=== PATIENT | female | born 1970 | race Caucasian/White ===

== ENCOUNTER → 2018-04-05 08:57 | Outpatient (CLI) | payer OTHER, SELFPAY ==
[2018-04-05 10:24] LABS: Follicle Stimulating Hormone 11.5 mIU/mL; Free T3 3.2 pg/mL (2.18-3.98); Prolactin 1.5 ng/mL; T4 Free Direct 1.08 ng/dL (0.76-1.46); Thyroid Stim Hormone (TSH) 1.27 uIU/mL (0.358-3.74)
[2018-04-06 08:58] LABS: Progesterone Level 0.18 ng/mL (See Comment)
[2018-04-06 10:27] LABS: DHEA Sulfate 72.8 ug/dL (41.2-243.7)
[2018-04-06 11:18] LABS: Sex Hormone-binding Globulin 26.2 nmol/L (24.6-122.0)
[2018-04-08 14:02] LABS: ALB/GLOB Ratio 1.1 RATIO (0.9-2.4); AST(SGOT) 28 U/L (15-37); Alanine Aminotransfer ALT/SGPT 43 U/L (13-56); Alkaline Phosphatase 60 U/L (45-117); Anion Gap 13 (5-15); BUN 12 mg/dL (7-18); BUN/Creat Ratio 17.7 RATIO (10-20); Calcium,Total 9.4 mg/dL (8.5-10.1); Chloride 100 mmol/L (98-107); Creatinine, Serum 0.68 mg/dL (0.55-1.02); EST Glomerular Filtration Rate 100 mL/min (>60); Est Glom Filt Rate - Afr Amer 120 mL/min (>60); Globulin 3.6 g/dL (2.2-4.2); Glucose 143 mg/dL (74-106); Potassium 4.6 mmol/L (3.5-5.1); Protein, Total 7.6 g/dL (6.4-8.2); Sodium Level 138 mmol/L (136-145)
[2018-04-10 11:09] LABS: 17-Hydroxyprogesterone 23 ng/dL (.)
== END ==
PROVIDERS: Visit Provider Obstetrics & Gynecology
DX: L68.0 Hirsutism (principal); N92.6 Irregular menstruation, unspecified; R63.5 Abnormal weight gain; N95.1 Menopausal and female climacteric states
CPT/HCPCS: 36415; 80053; 82533; 82627; 82670; 83001; 83498; 84144; 84146; 84270; 84403; 84439; 84443; 84481; 82626

== ENCOUNTER → 2018-04-11 09:12 | Outpatient (CLI) | payer OTHER, SELFPAY ==
[2018-04-11 12:13] LABS: Insulin 8.5 mU/L (2.6-37.6)
== END ==
PROVIDERS: Visit Provider Obstetrics & Gynecology
DX: E11.9 Type 2 diabetes mellitus without complications (principal)
CPT/HCPCS: 36415; 83525

== ENCOUNTER → 2018-06-14 13:00 | Outpatient (CLI) | payer OTHER, SELFPAY ==
--- NOTE | 2018-06-14 13:30 | CER_PTH ---
PATIENT: MELLO BRONSON LOC: [facility] U#:[id number] AGE/SX: 55/F ROOM: RE06/14/[address]: Dr. Elza Vo MD : 1970 BED: DIS: SPEC #: [id number] RECD: 06/14/18 15:46 STATUS: TOLU RELasha #: [id number] JAMES: 06/14/18 13:[address]: Elza Mcfarlane DEPT: SURGICAL PATHOLOGY RECD BY: Stef Díaz ENTERED: 06/15/18 09:48 SP TYPE: CERV OTHR DR: Dr. Tyrell Vo MD Tissues: Uterine cervix, NOS Procedures: Surgery Specimen Level IV HEADER OPERATION: Polypectomy PRE-OP DIAGNOSIS: Cervical polyp TISSUE SUBMITTED: Cervical polyp MICROSCOPIC DIAGNOSIS Cervical polyp, biopsy: Benign endocervical polyp, mildly inflamed. SJ:tanmay 06/16/18 MICROSCOPIC DESCRIPTION Slides are reviewed. GROSS DESCRIPTION Received in fixative is one container labeled with the patient's name and designated cervical polyp. The specimen consists of a piece of gaston-pink polyp measuring 0.7 x 0.5 x 0.1 cm. The specimen is totally submitted in one cassette. / SJ:rg 06/15/18 TC:1 CPT: 31378
[2018-06-17 11:25] LABS: HPV APTIMA, High Risk Negative (Negative)
== END ==
PROVIDERS: Family Provider Family Medicine; PCP Family Medicine; Referring Provider Obstetrics & Gynecology; Visit Provider Obstetrics & Gynecology
DX: Z12.4 Encounter for screening for malignant neoplasm of cervix (principal)
CPT/HCPCS: 87624; 88175; 88305; G0145

== ENCOUNTER → 2020-03-07 15:48 | Outpatient (CLI) | payer OTHER, SELFPAY ==
[2020-03-07 17:02] LABS: Hematocrit 35.4 % (37-47); Hemoglobin 11.4 g/dL (12.0-15.0); Mean Corp Hgb Conc 32.2 g/dL (32-36); Mean Corpuscular Hgb 28.8 pg (27.0-32.0); Mean Corpuscular Volume 89.4 fL (81-99); Mean Platelet Vol. 10.8 fl (6.2-12.0); Platelet Count 251 K/mm3 (150-450); RBC Distribution Width CV 12.9 % (11.6-14.6); RBC Distribution Width SD 41.9 fl (35.1-43.9); Red Blood Count 3.96 M/mm3 (4.2-5.4); White Blood Count 6.6 K/mm3 (4.4-11.0)
[2020-03-07 17:06] LABS: International Normalized Ratio 0.9
[2020-03-07 17:07] LABS: Partial Thromboplast Time 20.5 Seconds (24.1-36.2)
[2020-03-07 17:16] LABS: Hemoglobin A1c 9.5 % (3.8-5.6)
[2020-03-07 18:09] LABS: Anion Gap 10 (5-15); BUN 10 mg/dL (7-18); BUN/Creat Ratio 11.8 RATIO (10-20); Calcium,Total 8.8 mg/dL (8.5-10.1); Chloride 100 mmol/L (98-107); Creatinine, Serum 0.85 mg/dL (0.55-1.02); EST Glomerular Filtration Rate 76 mL/min (>60); Est Glom Filt Rate - Afr Amer 92 mL/min (>60); Free T3 2.5 pg/mL (2.18-3.98); Glucose 429 mg/dL (74-106); Sodium Level 131 mmol/L (136-145); T4 Free Direct 1.28 ng/dL (0.76-1.46); Thyroid Stim Hormone (TSH) 0.96 uIU/mL (0.358-3.74)
== END ==
PROVIDERS: PCP Family Medicine; Visit Provider Obstetrics & Gynecology
DX: N92.1 Excessive and frequent menstruation with irregular cycle (principal)
CPT/HCPCS: 36415; 80048; 83036; 84439; 84443; 84481; 85027; 85610; 85730

== ENCOUNTER 2020-03-21 08:54 | Day surgery (SDC) | payer OTHER, SELFPAY ==
[2020-03-21] VITALS (7 sets, daily range): BP systolic 127–136; BP diastolic 80–88; PULSE 65–86; RESP 16–18; TEMP 36.4–37.1; O2SAT 96–100; BMI 32.8
--- NOTE | 2020-03-21 | EMB_PTH ---
PATIENT: MELLO BRONSON LOC: [facility] [place] U[place][id number] AGE/SX: 49/F ROOM: RE03/21/[address]: Dr. Elza Vo MD : 1970 BED: DIS: 03/21/2020 SPEC #: [id number] RECD: 03/22/20 07:45 STATUS: TOLU RELasha #: [id number] JAMES: 03/21/20 00:[address]: Elza Mcfarlane DEPT: SURGICAL PATHOLOGY RECD BY: Raheem Caldwell ENTERED: 03/22/20 07:45 SP TYPE: ENDOM BX/C OTHR DR: Dr. Tyrell Vo MD Tissues: Endometrium, NOS Procedures: Surgery Specimen Level IV HEADER OPERATION: Hysteroscopy, dilation and curettage PRE-OP DIAGNOSIS: Menorrhagia TISSUE SUBMITTED: Endometrial curettings MICROSCOPIC DIAGNOSIS Endometrial curettings: Fragments of proliferative endometrium. Fragments of benign ectocervical epithelium and benign endocervical mucosa. SHERI:tanmay 03/25/20 MICROSCOPIC DESCRIPTION Slides are reviewed. GROSS DESCRIPTION Received in fixative is one container labeled with the patient's name and designated endometrial curettings. The specimen consists of multiple irregular fragments of light to dark gaston soft tissue that in aggregate measure 3 x 0.6 x 0.1 cm. The specimen is totally submitted in one cassette. / AM:tanmay 03/22/20 TC:4 CPT: 55680
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
[2020-03-21 09:30] LABS: Internal QC Validated? YES +Cl - CLEAR BKGD; Pregnancy, Urine Negative Negative
[2020-03-21] MEDS: Lactated Ringers 1,000 ML 100 ML IV (10:04)
[2020-03-21 10:11] LABS: Bedside Glucose 137 mg/dL (70-110)
--- NOTE | 2020-03-21 12:03 | PCM.DC.D&C ---
Discharge Diet: No Restrictions Discharge Activity: Return to Normal Activity, May Shower, - - No tub bath for 1-2 weeks, may drive after 24-48 hours May resume sexual activity in: - - 2-4 weeks Call your doctor if you observe: Fever of 101 or Higher, Inability to urinate, Inability to have a bowel movement, Using more than one pad per hour, Shortness of breath, Chest pain, Calf discomfort, Uncontrolled pain, - - Bleeding > 1 pad per hour Additional Instructions: You may take Aleve (Naproxen or Naprosyn) over the counter for pain. Allergies/Adverse Reactions: Allergies morphine Allergy (Verified 03/21/20 09:34) Other GOES CRAZY, SEVERE ITCHING Medications to take at Discharge Aspirin [Aspirin, Baby] 81 mg PO DAILY@0800 07/02/13 Calcium (Elemental) [Caltrate-600] 600 mg PO DAILY@0800 07/02/13 Folic Acid 1 mg PO DAILY 07/02/13 Multivitamins,Therapeutic [Multivitamin] 1 tablet PO DAILY 07/02/13 [place]-3/Dha/Epa/Fish Oil [Fish Oil Dr 500 mg Softgel] 500 mg PO DAILY 07/02/13 metFORMIN (XR) [Glucophage Xr] 1,000 mg PO BID 07/25/15 Dulaglutide [Trulicity] 0.5 mg SQ TH 03/14/20 Glipizide [Glucotrol Xl] 10 mg PO BID 03/14/20 L.acidoph,Paracasei, B.lactis [Probiotic] 1 ea PO DAILY 03/14/20 Lisinopril [Zestril] 10 mg PO DAILY 03/14/20 Metoprolol Tartrate [Lopressor (beta parrish)] 50 mg PO BID 03/14/20 Vitamin B Complex 1 ea PO DAILY 03/14/20 Zinc 50 mg PO DAILY 03/14/20 Naproxen Sodium [Aleve] 2 tab PO BID PRN #30 cap 03/21/20 The following prescriptions were given: Naproxen Sodium [Aleve] 2 tab PO BID PRN #30 cap PRN Reason: pain Primary Care Physician: Tyrell Vo MD [Primary Care Provider] - Test Results: Test results from this visit will be discussed in further detail at your follow-up appointment, if applicable. Please Follow Up With: Elza Mcfarlane MD When: 2 weeks
[2020-03-21] MEDS: HYDROcodone Bitartrate/Apap 5/325 Tablet PO (12:18)
--- NOTE | 2020-03-23 07:56 | OP.PCM_ITS ---
Problem List (1) Menorrhagia Status: Acute Qualifiers: Menorrhagia type: with irregular cycle Qualified Code(s): N92.1 - Excessive and frequent menstruation with irregular cycle Report of Operation Date of Procedure: 03/21/20 Pre-Operative Diagnosis: 1. Menorrhagia. 2. Thickened endometrium Post-Operative Diagnosis: 1. Menorrhagia. 2. Thickened endometrium Surgery/Procedure Performed:: 1. Hysteroscopy. 2. Dilation and curettage Description of Surgical Findings:: Normal appearing endometrium and uterine cavity coupon redemption clerk: None Type of Anesthesia:: General, Local Anesthesiologist: Mello Glover Specimen's removed: endometrial curettings Estimated Blood Loss (mL): 10 Fluids Replaced: 700 ml Description of Procedure: Patient was brought to the operating room and signed was performed. She is placed in the dorsal supine position and induced under MAC anesthetic. She was repositioned to dorsolithotomy and examination under anesthesia was performed. The perineum was prepped and draped in sterile fashion and straight catheterization of the bladder was performed. The patient was placed into high lithotomy and a bivalve speculum placed vaginally. A paracervical block was placed using a total of 20 cc of 1% lidocaine. The cervix was grasped with a single-tooth tenaculum at the anterior cervical lip. The uterus sounded to 9 cm. The cervix was subsequently dilated and hysteroscopy performed demonstrating normal uterine cavity. The hysteroscope was removed and sharp curettage followed with retrieval of Que curettings. Hysteroscopy was again performed confirming the integrity of the uterine wall. The procedure was complete. The tenaculum was removed from the cervix with hemostatic tenaculum site. The speculum was removed from the vagina. The patient was placed into dorsal supine position, awakened and transferred to the recovery room without complication. Sponge counts were correct x2. - Complications None - Admit VTE Documentation VTE Present on Admission: No VTE Mechan Device Prophylaxis: SCD's VTE Pharm Prophylaxis ordered?: No
== END 2020-03-21 12:48 | disposition home or self-care (01) ==
LOC: SDC 08:56 → AC 08:58
PROVIDERS: Anesthesiology; PCP Family Medicine; Referring Provider Obstetrics & Gynecology; Visit Provider Obstetrics & Gynecology
PROC: 0UDB8ZZ Extraction of Endometrium, Via Natural or Artificial Opening Endoscopic (ICD-10-PCS; CPT 58558; principal; 2020-03-21 10:20)
DX: N92.1 Excessive and frequent menstruation with irregular cycle (principal); Z11.59 Encounter for screening for other viral diseases; N95.1 Menopausal and female climacteric states; D68.51 Activated protein C resistance; E11.9 Type 2 diabetes mellitus without complications; I10 Essential (primary) hypertension; K21.9 Gastro-esophageal reflux disease without esophagitis; Z79.3 Long term (current) use of hormonal contraceptives; Z79.84 Long term (current) use of oral hypoglycemic drugs; Z79.899 Other long term (current) drug therapy
CPT/HCPCS: 00952; 58558; 36415; 81025; 82962; 86850; 86900; 86901; 87635; 88305; 94799; J7120; J2405; U0003

== ENCOUNTER 2020-04-25 11:00 | Observation (INO) | payer OTHER, SELFPAY ==
[2020-03-21 09:36] VITALS: BMI 32.8
[2020-04-19 13:54] LABS: Color, Urine Yellow (Yellow); Glucose, Dipstick Normal (Normal); Ketone-Dipstick Negative (Negative); Leukocyte Esterase-Dipstick Negative /ul (Negative); Nitrite-Dipstick Negative (Negative); Occult Blood-Urine Negative /ul (Negative); Protein-Dipstick Negative (Negative); Urine Bilirubin Dipstick Negative (Negative); Urine Clarity Clear (Clear); Urine Urobilinogen Normal (Normal)
[2020-04-19 14:00] LABS: Anion Gap 9 (5-15); BUN 13 mg/dL (7-18); BUN/Creat Ratio 18.5 RATIO (10-20); Calcium,Total 8.9 mg/dL (8.5-10.1); Chloride 101 mmol/L (98-107); EST Glomerular Filtration Rate 94 mL/min (>60); Est Glom Filt Rate - Afr Amer 114 mL/min (>60); Glucose 97 mg/dL (74-106); Potassium 3.8 mmol/L (3.5-5.1); Sodium Level 137 mmol/L (136-145)
[2020-04-19 14:09] LABS: Hemoglobin A1c 7.9 % (3.8-5.6)
--- NOTE | 2020-04-19 14:25 | EKG12_ITS ---
Test Reason : PREOP Blood Pressure : / mmHG Vent. Rate : 081 BPM Atrial Rate : 081 BPM P-R Int : 166 ms QRS Dur : 078 ms QT Int : 350 ms P-R-T Axes : 009 012 014 degrees QTc Int : 406 ms Normal sinus rhythm Normal ECG Confirmed by BEATRIZ APPLE, ELAYNE ([id number]), news assignment editor SEBASTIEN BRANDON ([id number]) on 04/23/2020 8:08:14 AM Referred By: Elza Vo Confirmed By:AMITA HENDERSON MD
[2020-04-25] VITALS (13 sets, daily range): BP systolic 98–124; BP diastolic 57–80; PULSE 65–95; RESP 16–18; TEMP 36.1–36.9; O2SAT 93–100; BMI 32.3
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
[2020-04-25 05:59] LABS: Internal QC Validated? YES +Cl - CLEAR BKGD; Pregnancy, Urine Negative Negative
[2020-04-25] MEDS: Lactated Ringers 1,000 ML 125 ML IV ×4 (06:17→17:32)
[2020-04-25 06:40] LABS: Bedside Glucose 81 mg/dL (70-110)
[2020-04-25] MEDS: Heparin Injection 5,000 UNITS/ML Syringe 5000 UNITS IV (07:00)
--- NOTE | 2020-04-25 07:30 | HYST_PTH ---
PATIENT: MELLO BRONSON LOC: [facility] U#:[id number] AGE/SX: 50/F ROOM: OR325 RE04/25/[address]: Dr. Elza Vo MD : 1970 BED: 1 DIS: 04/26/2020 SPEC #: [id number] RECD: 04/25/20 11:35 STATUS: TOLU RELasha #: [id number] JAMES: 04/25/20 07:[address]: Elza Mcfarlane DEPT: SURGICAL PATHOLOGY RECD BY: Stef Díaz ENTERED: 04/25/20 13:43 SP TYPE: HYSTERECT OTHR DR: MD Dr. Valorie Ramirez MD Dr. Raymond Mason, MD Tissues: Uterus, NOS Procedures: Surgery Specimen Level V HEADER OPERATION: Hysterectomy, LAVH, salpingectomy PRE-OP DIAGNOSIS: Uterine fibroid, menorrhagia TISSUE SUBMITTED: Uterus, cervix, bilateral fallopian tubes MICROSCOPIC DIAGNOSIS Uterus, hysterectomy: Cervix - nabothian cysts. Endometrium - proliferative endometrium. Myometrium - leiomyoma and adenomyosis. Right and left fallopian tubes - no pathologic change. AM:tanmay 04/26/20 MICROSCOPIC DESCRIPTION Slides are reviewed. GROSS DESCRIPTION Received in fixative is one container labeled with the patient's name and designated uterus, cervix and bilateral fallopian tubes. The specimen consists of a hysterectomy specimen consisting of previously, partially opened uterus with cervix, detached bilateral fallopian tubes and detached piece of uterus with portion of endometrial cavity. The uterus with cervix and detached piece of uterus weighs in aggregate 83 gm. The uterus with cervix measures 9 x 5 x 4.5 cm and detached piece of uterus measures 4 x 3 x 2 cm. The serosal surface is focally ragged. The endocervical canal measures 3 cm in length and the endocervical mucosa is gaston, glistening and unremarkable. The endometrial cavity is partly disrupted due to previous sectioning and measures 5 cm in length and up to 1.5 cm in width. The endometrium is gaston, glistening without any mass lesion and measures 0.1 cm in thickness. Sections of the uterine wall reveal a gaston nodular mass measuring 1.5 cm in diameter. Sections of this mass reveals gaston whorled cut surfaces without areas of hemorrhage, necrosis or cystic degeneration. The uninvolved uterine wall measures up to 2 cm in thickness. Sections of detached piece of uterus do not reveal any mass lesion. The fallopian tubes are not identified as right or left. One of the fallopian tubes measure 4 cm in length and 0.7 cm in diameter. The fimbrial end is identified. Sections reveal unremarkable cut surfaces. The second fallopian tube is similar appearance to first and measures 4 cm in length and 0.6 cm in diameter. Family Services Coordinator sections are submitted in nine cassettes as follows: 1 - anterior cervix, 2 - posterior cervix, 3 & 4 - anterior uterine wall, 5 & 6 - posterior uterine wall, 7 - nodular mass, 8 & 9 - bilateral fallopian tubes with each containing one fallopian tube. / SHERI:tanmay 04/25/20 TC:1 CPT: 27800
[2020-04-25] MEDS: Cefotetan 2 GM in 0.9% NS 100 ML IV (07:42)
[2020-04-25] MEDS: Vasopressin 20 UNITS/ML Vial (08:20)
[2020-04-25] MEDS: Bupivacaine Mpf 0.5% 30 ML VIAL (08:30)
--- NOTE | 2020-04-25 09:30 | PCM.OPRPT ---
Problem List (1) Stress incontinence Status: Acute Report of Operation Date of Procedure: 04/25/20 Pre-Operative Diagnosis: stress incontinence Post-Operative Diagnosis: same Surgery/Procedure Performed:: midurethral sling insertion, cystoscopy Type of Anesthesia:: General Specimen's removed: none Estimated Blood Loss (mL): 10cc Description of Procedure: The patient is a 50-year-old female with stress urinary incontinence along with urge incontinence. We discussed the options for management and she desired to proceed with mid urethral sling insertion at the time of her hysterectomy. Risks benefits and alternatives were fully discussed including the risks of COVID-19. Informed consent was obtained. She underwent urodynamics and cystoscopy in the office in preparation. The patient was taken to the operating room and placed on the operating room table. Anesthesia monitored the head, neck, airway, IV access and vital signs throughout the case. Once anesthesia was appropriately administered the patient was prepped and draped in usual sterile fashion. Dr. Jocelyn Vo proceeded with hysterectomy and closure of the cuff. The case was then turned to nd. The mid urethra was identified. She already had an indwelling urethral Chilel catheter. The submucosa was injected for hemostatic control and hydrostatic dissection. A midline vertical 2 cm incision was then made and sharp and blunt dissection was performed on either side of the urethra with care being taken to avoid injury to the urethra itself. At this time the Altis mid urethral sling was placed using the trochars into the trans-obturator complexes bilaterally. There was no difficulty with insertion of the sling. It was positioned using the tensioning suture which was then cut. The sling lay in a flat position. The midline incision was closed with running interlocking 2-0 Vicryl suture. A cystourethroscopy was then performed through the urethra under direct visualization with a 70 degree lens. Bilateral ureteral orifices were clearly identified and good ureteral jets were observed bilaterally. The remainder of the bladder mucosa was visualized in its entirety and was found to be without injury or foreign body. There were no masses or areas of erythema either. The urethral mucosa was also visualized and no foreign body was identified. The cystoscope was removed and the Chilel catheter was reinserted. Of note the patient has significant edema of her labia bilaterally. At this time the patient was awakened and taken to the recovery room in good condition. There were no complications during the procedure. Grafts/Implants Used: Altis midurethral sling - Complications none - Admit VTE Documentation VTE Present on Admission: Yes VTE Mechan Device Prophylaxis: SCD's VTE Pharm Prophylaxis ordered?: Yes
--- NOTE | 2020-04-25 09:32 | PCM.DC.URO ---
Discharge Diet: No Restrictions Discharge Activity: May not drive while taking narcotic pain medications. May resume sexual activity in: 4-6 weeks Lifting Restrictions: no lifting over 5 pounds for 4 weeks Additional Activity Instructions:: no strenuous activity, no exercise, no swimming, no tub bathing, no hot tubs ok to shower Call your doctor if your incision/area has: Continuous Slow Oozing, Sudden Increased Bleeding, Increased Pain/ Swelling, Foul Smelling Discharge Call your doctor if you observe: Fever of 101 or Higher, Inability to urinate, Inability to have a bowel movement Allergies/Adverse Reactions: Allergies morphine Allergy (Verified 04/25/20 05:35) Other GOES CRAZY, SEVERE ITCHING Medications to take at Discharge Calcium (Elemental) [Caltrate-600] 600 mg PO DAILY@0800 07/02/13 Folic Acid 1 mg PO DAILY 07/02/13 Multivitamins,Therapeutic [Multivitamin] 1 tablet PO DAILY 07/02/13 [place]-3/Dha/Epa/Fish Oil [Fish Oil Dr 500 mg Softgel] 500 mg PO DAILY 07/02/13 metFORMIN (XR) [Glucophage Xr] 1,000 mg PO BID 07/25/15 Dulaglutide [Trulicity] 0.5 mg SQ TH 03/14/20 Glipizide [Glucotrol Xl] 10 mg PO BID 03/14/20 L.acidoph,Paracasei, B.lactis [Probiotic] 1 ea PO DAILY 03/14/20 Lisinopril [Zestril] 10 mg PO DAILY 03/14/20 Metoprolol Tartrate [Lopressor (beta parrish)] 50 mg PO BID 03/14/20 Vitamin B Complex 1 ea PO DAILY 03/14/20 Zinc 50 mg PO DAILY 03/14/20 Naproxen Sodium [Aleve] 2 tab PO BID PRN #30 cap 03/21/20 Aspirin [Adult Low Dose Aspirin EC] 81 mg PO DAILY 04/16/20 Pioglitazone [Actos] 30 mg PO QHS 04/16/20 Cephalexin [Keflex] 500 mg PO Q12 3 Days #6 cap 04/25/20 Oxycodone HCl/Acetaminophen [Percocet 5/325] 2 tablet PO Q8H PRN PRN 7 Days #20 tablet 04/25/20 The following prescriptions were given: Cephalexin [Keflex] 500 mg PO Q12 3 Days #6 cap Transmission Status: Pending to [facility] Oxycodone HCl/Acetaminophen [Percocet 5/325] 2 tablet PO Q8H PRN PRN 7 Days #20 tablet PRN Reason: Pain Transmission Status: Sent to [facility] Primary Care Physician: Tyrell Vo MD [Primary Care Provider] - Test Results: Test results from this visit will be discussed in further detail at your follow-up appointment, if applicable. Please Follow Up With: Valorie Martins MD When: call office for appt
--- NOTE | 2020-04-25 11:00 | OP.PCM_ITS ---
Problem List (1) Uterine fibroid Status: Acute (2) Menorrhagia Status: Acute Qualifiers: Menorrhagia type: with irregular cycle Report of Operation Date of Procedure: 04/25/20 Pre-Operative Diagnosis: Menorrhagia. Uterine fibroids Post-Operative Diagnosis: Menorrhagia. Uterine fibroids Surgery/Procedure Performed:: Laparoscopic assisted vaginal hysterectomy. Bilateral salpingectomy. Lysis of adhesions Description of Surgical Findings:: extensive bladder adhesions to anterior uterus diamond driller: Alicia Best Type of Anesthesia:: General Anesthesiologist: Rio Pan Estimated Blood Loss (mL): 200 Description of Procedure: Patient was taken to the operating room and sign in performed. She was induced under general anesthesia and intubated. She was repositioned into dorsal lithotomy and her arms tucked at her side. An examination under anesthesia was performed. The perineum and abdomen were prepped and draped in sterile fashion. A agee catheter was placed. A weighted speculum was placed vaginally and the cervix grasped at the anterior vaginal lip. The uterus was sounded and a ZUMI uterine manipulator was placed and secured. The tenaculum was removed. The patient was placed into low lithotomy and attention turned to the abdomen. An inferior umbilical incision was made with the scalpel. The Veress needle was introduced abdominally with successful hang drop test and no aspirate and abdominal entry pressures were less than 5mmHg. The abdomen was insufflated to 15mmHg. The Veress needle was removed and a 5mm port was placed under laparoscopic guidance at the umbilicus. The patient was placed into Trendelenberg. A laparoscopic guided TAP block was performed using 0.5% Marcaine in the right and left lower quadrants under transillumination. Incisions were m arina at each of these sites and 5mm ports were also placed. A suprapubic incision was made and 5mm port also placed here. The abdomen and pelvis were inspected with normal anatomy apart from the dense bladder adhesion to the anterior uterus. I proceeded with left salpingectomy. The tubal fimbria was identified and the mesosalpinx was clamped, electrocoagulated and transected using the Enseal device to the level of the uterine cornua. The Enseal was used for all electrocoagulation and transection during the procedure unless otherwise noted The left utero-ovarian ligament, then the left round ligament was electrocoagulated and transected. The anterior left broad ligament was opened and the uterine vessels skeletonized with creation of the bladder flap. In similar fashion right salpingectomy was performed and followed by electrocoagulation and transection of the right utero-ovarian ligament and round ligaments, opening of the right broad ligament with skeletonization of the uterine vessels. Further anterior dissection was completed using blunt and sharp dissection to complete the bladder flap bilaterally. The uterine arteries were electocoagulated bilaterally. The abdomen was desufflated and Attention was turned vaginally. A circumferential incision was made using the scalpel. The anterior vesicovaginal membrane was dissected and curved [place] placed anteriorly however the anterior culdesac peritoneum remained high. Posteriorly, the culdesac was entered sharply and a long weighted speculum was placed into the posterior culdesac. The uterosacral ligaments, then cardinal ligaments were serially Emiliano clamped and cut and suture ligated with 0 Vicryl. O Vicryl was used for all sutures. With further descent, the anterior culdesac peritoneum was visualized and sharply entered. The curved [place] retractore was placed into the culdesac. The uterine vessels were Emiliano clamped, suture ligated and cut. There was uterine tissue dystocia due to a long vagina and narrow pelvis. I transected the left tube to allow further visualization. The uterus was bivalved and cored with delivery of the uterus with tubes. A modified Thacker culdeplasty was performed with pursestring suture of the uterosacral ligements and posterior peritoneum. The vaginal cuff was reapproximated with serial figure of eight sutures. Dr. Martins completed her portion of the procedure while I performed l aparoscopic to verify intra-abdominal hemostasis with excellent hemostasis. There was efflux of insufflation vaginally. Following placement of the sling, a cuff defect was identified and I placed three additional figure of eight sutures at the vaginal cuff. Cystoscopy was performed by Dr. Martins and the procedure complete. The patient was placed into dorsal supine position, awakened, extubated and transferred to the recovery room without complication. Sponge and needle counts correct x 2. - Complications none - Admit VTE Documentation VTE Present on Admission: No VTE Mechan Device Prophylaxis: SCD's VTE Pharm Prophylaxis ordered?: No
[2020-04-25 11:51] LABS: Bedside Glucose 226 mg/dL (70-110)
[2020-04-25] MEDS: HYDROmorphone 1 MG/ML Syringe IV (13:31)
[2020-04-25] MEDS: 0.9% Saline Lock 10 ML Syringe IV (13:32)
--- NOTE | 2020-04-25 14:02 | PCA ---
got some medical records from [facility] for patient placed in chart
[2020-04-25] MEDS: Acetaminophen 500 MG Tablet 1000 MG PO ×2 (15:20→21:48)
[2020-04-25] MEDS: Ketorolac 30 MG/ML Syringe IV ×2 (17:20→22:04)
[2020-04-25] MEDS: Insulin Lispro 100 UNIT/ML INSULN.PEN SC (17:35)
[2020-04-25 17:56] LABS: Bedside Glucose 217 mg/dL (70-110)
--- NOTE | 2020-04-25 18:09 | PCM.PN.BLA ---
Progress Note PROGRESS NOTE Doing well. Pain controlled. OOB to chair. Denies nausea or vomiting. Tolerates PO. No flatus yet. Denies heavy vaginal bleeding. AVSS GEN - NAD, AAO x 3 ABD - soft, NT, ND, incisional dressings c/d/i EXT - no calf tenderness A/P: 50yo s/p LAVH, BS, tvt-o doing well. -Routine postop care -hx DM - SSI -Ambulation encouraged, Lovenox for DVT ppx STROKE Vital Signs/Narrative: Vital Signs Temp Pulse Resp BP Pulse Ox 04/25/20 17:15 97.9 F 83 16 102/71 100 04/25/20 15:15 97.5 F L 83 16 100/61 95
[2020-04-25] MEDS: oxyCODONE 5 MG Tablet PO (18:50)
[2020-04-25] MEDS: glipiZIDE 10 MG Tablet PO (18:50)
[2020-04-25] MEDS: metFORMIN (XR) 500 MG Tablet 1000 MG PO (18:50)
[2020-04-25] MEDS: Pioglitazone Hydrochloride 30 MG Tablet PO (21:47)
[2020-04-25] MEDS: DULAGLUTIDE 1.5 MG/0.5 ML PEN.INJCTR SQ (21:48)
[2020-04-25] MEDS: Enoxaparin 40 MG/0.4 ML Syringe SC (21:48)
[2020-04-25 22:36] LABS: Bedside Glucose 191 mg/dL (70-110)
[2020-04-26] MEDS: oxyCODONE 5 MG Tablet PO ×2 (02:38→11:46)
[2020-04-26 02:40] VITALS: BP 95/55; PULSE 95; RESP 20; TEMP 36.4; O2SAT 95
[2020-04-26] MEDS: Acetaminophen 500 MG Tablet 1000 MG PO (06:43)
[2020-04-26] MEDS: Ketorolac 30 MG/ML Syringe IV ×2 (06:44→11:33)
[2020-04-26] MEDS: 0.9% Saline Lock 10 ML Syringe IV ×2 (06:47→11:33)
[2020-04-26 07:10] LABS: Bedside Glucose 50 mg/dL (70-110)
[2020-04-26 07:17] LABS: Hematocrit 26.6 % (37-47); Hemoglobin 8.7 g/dL (12.0-15.0); Mean Corp Hgb Conc 32.7 g/dL (32-36); Mean Corpuscular Hgb 28.9 pg (27.0-32.0); Mean Corpuscular Volume 88.4 fL (81-99); Mean Platelet Vol. 9.6 fl (6.2-12.0); Platelet Count 263 K/mm3 (150-450); RBC Distribution Width CV 12.7 % (11.6-14.6); RBC Distribution Width SD 40.8 fl (35.1-43.9); Red Blood Count 3.01 M/mm3 (4.2-5.4); White Blood Count 10.8 K/mm3 (4.4-11.0)
[2020-04-26 07:24] VITALS: O2SAT 97
[2020-04-26 07:30] LABS: Bedside Glucose 49 mg/dL (70-110)
--- NOTE | 2020-04-26 07:47 | NURSING ---
Patient's blood sugar was 50. Given 4 oz. cranberry juice. Encouraged to drink it all. Patient only sipped it. Patient's sugar rechecked-49. Gerardo crackers and peanut butter given and eaten. Breakfast ordered.
[2020-04-26 07:55] LABS: Creatinine, Serum 0.78 mg/dL (0.55-1.02); EST Glomerular Filtration Rate 84 mL/min (>60); Est Glom Filt Rate - Afr Amer 102 mL/min (>60); Estimated Creatinine Clearance 76.17 ml/min
[2020-04-26 08:09] VITALS: BP 102/67; PULSE 79; RESP 16; TEMP 36.4; O2SAT 95
[2020-04-26] MEDS: Vitamin B Comp W-C Capsule 1 CAP PO (08:16)
[2020-04-26] MEDS: Multivitamins,Therapeutic Tablet 1 TABLET PO (08:16)
[2020-04-26] MEDS: metFORMIN (XR) 500 MG Tablet 1000 MG PO (08:16)
[2020-04-26] MEDS: glipiZIDE 10 MG Tablet PO (08:16)
[2020-04-26] MEDS: Folic Acid 1 MG Tablet PO (08:16)
[2020-04-26 10:10] VITALS: PULSE 84
[2020-04-26 10:13] VITALS: PULSE 84
[2020-04-26] MEDS: Lisinopril 10 MG Tablet PO (10:13)
[2020-04-26] MEDS: Metoprolol Tartrate 50 MG Tablet PO (10:13)
[2020-04-26 12:28] VITALS: BP 101/59; PULSE 85; RESP 16; TEMP 37; O2SAT 98
== END 2020-04-26 12:53 | disposition home or self-care (01) ==
LOC: SDC 11:22 → MS3 04-26 07:21
PROVIDERS: Anesthesiology; Urology; Admitting Provider Obstetrics & Gynecology; PCP Family Medicine; Referring Provider Obstetrics & Gynecology; Visit Provider Obstetrics & Gynecology
PROC: 0UT9FZZ Resection of Uterus, Via Natural or Artificial Opening With Percutaneous Endoscopic Assistance (ICD-10-PCS; CPT 58552; principal; 2020-04-25 07:05)
PROC: 0TJB8ZZ Inspection of Bladder, Via Natural or Artificial Opening Endoscopic (ICD-10-PCS; CPT 57288; 2020-04-25 07:05)
DX: N39.3 Stress incontinence (female) (male) (principal); D25.1 Intramural leiomyoma of uterus; Z11.59 Encounter for screening for other viral diseases; N92.1 Excessive and frequent menstruation with irregular cycle; E11.9 Type 2 diabetes mellitus without complications; D68.51 Activated protein C resistance; N95.1 Menopausal and female climacteric states; K21.9 Gastro-esophageal reflux disease without esophagitis; I10 Essential (primary) hypertension; Z79.899 Other long term (current) drug therapy; Z79.84 Long term (current) use of oral hypoglycemic drugs
CPT/HCPCS: 00940; 57288; 58552; 36415; 80048; 81002; 81025; 82565; 82962; 83036; 85027; 86850; 86900; 86901; 87086; 87088; 87635; 88307; 93005; 96361; 96372; 96374; 96375; 96376; 99218; 99251; C9803; J7120; A4216; C1760; G0378; G0379; G0463; J2405; U0003

== ENCOUNTER → 2020-11-01 13:11 | Outpatient (CLI) | payer OTHER, SELFPAY ==
--- NOTE | 2020-11-01 13:12 | MRI_ITS ---
STUDY: MRI RIGHT SHOULDER REASON FOR EXAM: Female, 50 years old. Pain, no injury, decreased rom TECHNIQUE: Standardized fat and water weighted pulse sequences were obtained in all 3 orthogonal planes. COMPARISON: X-ray August 14, 2020 FINDINGS: Normal supraspinatus tendon. Normal infraspinatus tendon. Normal subscapularis tendon. Normal teres minor tendon. Normal supraspinatus muscle. Normal infraspinatus muscle. Normal subscapularis muscle. Normal teres minor muscle. Normal glenohumeral articulation. There is small joint effusion. Normal humeral head and visualized proximal humerus. Normal biceps labral complex. Normal intracapsular long biceps tendon. Tear of the superior labrum adjacent to the biceps anchor, series 6 images 07/05 and 08/04 Normal capsulo- ligamentous complex. Normal rotator interval. There is mild osteoarthritis of the acromioclavicular articulation. There is a Type II morphology (curved), with a neutral orientation. There is no subacromial-subdeltoid bursal fluid. Normal visualized coracohumeral and coracoacromial ligaments. Normal quadrilateral space. Normal axillary space. Normal deltoid muscle. Normal trapezius muscle. MRI/Upper Ext Joint Only(Routine) IMPRESSION: No rotator cuff tear. SLAP lesion with tear of the superior labrum. Electronically Signed: Julian Ho MD at 15:38 EDT , Service support ,
== END ==
PROVIDERS: PCP Family Medicine; Referring Provider Physician Assistant; Visit Provider Physician Assistant
DX: M25.511 Pain in right shoulder (principal); M75.41 Impingement syndrome of right shoulder
CPT/HCPCS: 73221

== ENCOUNTER 2020-12-12 10:00 | Outpatient (RCR) | payer OTHER, SELFPAY ==
--- NOTE | 2020-11-13 14:59 | HP.PTEVAL ---
Patient's Visit Information MELLO BRONSON is a 50 year old F referred to Physical Therapy by Dr. aSrah Rodriguez DO with a diagnosis of R SLAP lesion and adhesive capsulitis. Date of Evaluation: 11/13/20 Physical Therapist: Abhinav Khalil, PT, ATC - Visit Plan Frequency: 2-3x /Week Duration: 4 Weeks Plan: Aquatic therapy consisting of R shoulder stretching and strengthening, scap stab ex's, ROM, and HEP - Subjective Pt reports her R shoulder has been sore since April of 2020. Pt reports she had a hysterectomy at ;that time and notes her R shoulder has been sore ever since. Pt notes she has no other mechanism she can think of at this time. Pt is R hand dominant. Pt notes sleep difficulty secondary to pain. Pt reports R UE radiculopathy in the L UE which extends down to the mid forearm on occasion. Pt reports her pain has progressively worsened over the past several months, and has become really severe over the past 6 weeks. Pt reports she works from home on a computer, and notes this provokes R UE t and n. Pt reports she is unable to perform overhead lifting activity secondary to pain. Pt notes she has been performing a HEP, but no improvements at this time. Pt had an MRI which revealed a SLAP lesion of R shoulder. 3/10 pain at rest, 9/10 pain at worst: - Pain R shoulder Pain Intensity (Out of 10): 3 Pain Intensity Range: 9 - Objective Neuro: B UE sensation is WNL to light touch. Palpation: R shoulder is sore along the anterior region, along the anterior joint line and along the distribution of the biceps tendon. ROM: L shoulder flex= 160, abd= 180, ER= 65, IR WNL; R shoulder flex= 110, abd= 70, ER= 25, IR significantly limited. MMT: R shoulder is 4-/5 throughout available ROM. L shoulder is 5/5 throughout - Goals Goal 1:: Decrease R shoulder pain x 50% to aid with sleep Goal Time Frame: 4-6 Weeks Goal 2:: Increase R shoulder flex and abd ROM x 30 degrees to aid with overhead lifting Goal Time Frame: 4-6 Weeks Goal 3:: Increase R shoulder strength x 1 grade to aid with IADL's Goal Time Frame: 4-6 Weeks Goal 4:: I with HEP Goal Time Frame: 4-6 Weeks - Rehabilitation Potential Physical Therapy Diagnosis: Pt has R shoulder pain, weakness, and limited ROM secondary to R SLAP lesion and adhesive capsulitis Rehabilitation Potential: Good - Anticipated Interventions Patient/Client Instruction: Educate patient on: Condition, Plan of Care For the Purpose of:: To improve self management Therapeutic Exercise to Include: Strength training, Endurance training, Flexibilty training, In an aquatic setting, Passive ROM, Active ROM, Scapular Strength/Stabilization For the Purpose of:: To decrease pain, To increase ROM, To improve muscle performance and motor function Cryotherapy (ice pack, ice massage): Yes For the Purpose of:: To decrease pain Thank you for the opportunity to evaluate your patient. For Medicare and Medicare HMO plans, please review the plan of care and approve it. It will need to be FAXED BACK to us at [phone] for Medicare purposes. For Medicare only, by signing this I certify the plan of care. Please let me know if there are questions or concerns regarding this plan of care. Physician Signature: Date:
--- NOTE | 2020-12-12 10:31 | HP.PTDCSUM ---
It has been my pleasure to treat MELLO BRONSON referred by Dr. Sarah Rodriguez DO, with the diagnosis of R SLAP lesion and adhesive capsulitis for a total of 8 visit(s). Discharge Date: Please see the following information for a summary of their discharge status. Subjective: My mobility has improved, the pain is the same R shoulder Pain Intensity (Out of 10): 6 % Improvement: 30 Objective/Function: R shoulder pain 6/10. R shoulder ROM: flex= 110, abd= 75, ER= 10, IR moderately limited. R shoulder MMT: IR= 3+/5, all other measurements 4/5 in available ROM. Pt is not progressing at this time Goal 1:: Decrease R shoulder pain x 50% to aid with sleep Goal Progress: Not Progressing Goal 2:: Increase R shoulder flex and abd ROM x 30 degrees to aid with overhead lifting Goal Progress: Not Progressing Goal 3:: Increase R shoulder strength x 1 grade to aid with IADL's Goal Progress: Not Progressing Goal 4:: I with HEP Goal Progress: Goal Met Plan: Discontinue, RTD If there are questions or concerns regarding this patient's physical therapy, please feel free to call me at [phone]. Thank you for the referral of this patient. Sincerely, Abhinav Khalil, PT, ATC
== END 2020-12-12 19:00 | disposition home or self-care (01) ==
LOC: PT 10:00
PROVIDERS: PCP Family Medicine; Referring Provider Orthopaedic Surgery; Visit Provider Orthopaedic Surgery
DX: S43.431D Superior glenoid labrum lesion of right shoulder, subsequent encounter (principal); M75.01 Adhesive capsulitis of right shoulder
CPT/HCPCS: 97113; 97161; 97164

== ENCOUNTER 2021-01-14 07:19 | Day surgery (SDC) | payer OTHER, SELFPAY ==
[2020-12-18 13:51] VITALS: BMI 32.3
[2021-01-09 09:56] LABS: Anion Gap 6 (5-15); BUN 12 mg/dL (7-18); Calcium,Total 9.2 mg/dL (8.5-10.1); Chloride 99 mmol/L (98-107); Creatinine, Serum 0.75 mg/dL (0.55-1.02); EST Glomerular Filtration Rate 87 mL/min (>60); Est Glom Filt Rate - Afr Amer 106 mL/min (>60); Glucose 117 mg/dL (74-106); Potassium 4.3 mmol/L (3.5-5.1); Sodium Level 136 mmol/L (136-145)
[2021-01-09 10:25] LABS: Hemoglobin A1c 7.5 % (3.8-5.6)
[2021-01-14] VITALS (9 sets, daily range): BP systolic 90–126; BP diastolic 54–78; PULSE 74–102; RESP 16; TEMP 36–36.4; O2SAT 90–100; BMI 34.7
[2021-01-14] MEDS: Lactated Ringers 1,000 ML 100 ML IV ×2 (07:30→11:30)
--- NOTE | 2021-01-14 07:35 | PCM.HP.BLA ---
History and Physical Date of Admission: 01/14/21 Date of Service: 12/18/20 MR#:[id number]:[id number]: MELLO BRONSONRep #:[id number] Provider:Dr. Sean Ruth DOAge/Sex: 50/F [facility] [place]Signed Intake Vital Signs 12/12/20 10:43 12/18/20 13:51 Height 5 ft 4 in BMI 32.3 Intake Visit Reasons: referred by [facility] Chief Complaint: right shoulder Allergies morphine Allergy (Verified 11/04/20 08:13) Other HPI referred by [facility] Details: Parts of this documentation were recorded by a scribe, this documentation accurately reflects the service provided and the decisions made by me, Dr. Sean Ruth, 12/18/20 1340. MELLO BRONSON is a 50 year old F here today for to discuss shoulder arthroscopy w/ manipulation. Patient has completed six weeks of physical therapy with no improvement. Pains have remained the same following subacromial injection as well as glenohumeral injection followed by physical therapy. She also took an anti-inflammatory for a while without relief. She continues to have reduced ROM as well as pains with ROM. She denies any swelling or skin changes and has no parasthesias. She did have an MRI which she reviewed in office with physician. To recall patient has had this problem since May. She started with increasing pain in the stiffness then followed again she has failed physical therapy glenohumeral and subacromial injections and continues to have significant pain and stiffness, Glenohumeral injection 11/07/2020 subacromial injection 08/15/2020 Patient takes aspirin and tramadol Ortho Exam General General: Yes no acute distress Neurologic: Yes alert Psychologic: Yes reasonable and appropriate Right Shoulder Skin/Wound: No ecchymosis, No erythema and No swelling Testing: Positive Hawkin's, Neer's, Speed's, TTP Biceps, Yergason's, AROM-External Rotation at side 0-60, PROM-External Rotation at side 0-60, PROM-External Rotation at 90 0-60 and PROM-Forward Elevation 0-180; Negative TTP AC Joint, Drop Arm, AROM-Forward Elevation 0-180 or AROM-External Rotation at 90 0-60 SHOULDER: stiffness in all planes arom 115/110/10/buttock Supplemental Info 11/01/2020 MRI right shoulder: SLAP lesion superior mild AC joint arthrosis and type II acromion Coding Level of Care Code Off vis,est,level 3 Diagnoses Stiffness of right shoulder joint M25.611 SLAP lesion of right shoulder S43.431A Impingement syndrome of right shoulder M75.41 Assessment and Plan Assessment and Plan (1) Stiffness of right shoulder joint: Status: Acute (2) SLAP lesion of right shoulder: Status: Acute (3) Impingement syndrome of right shoulder: Status: Acute Plan - Dr. Sean Ruth, DO: Thorough discussion was had with the patient she has failed extensive conservative treatment with ongoing pain and stiffness. Risk benefits alternatives reviewed for surgical intervention specifically shoulder arthroscopy subacromial decompression biceps tenotomy labral debridement possible capsular release manipulation under anesthesia and surgery as indicated. She will need to stop her aspirin and any NSAID 7 days prior to surgery she does have factor V Leiden and we will have to contact her PCP to obtain clearance to stop this as well as clearance for surgery and postoperative recommendations in terms of anticoagulation. In addition we will request a Dynasplint for the right shoulder postoperatively and start physical therapy postoperatively immediately she understands risk of surgery including risk of bleeding infection nerve artery tissue damage need for third further surgery continued pain continue postoperative stiffness and expected postoperative course. Follow-up 2 weeks postop 12/18/20 1545<Electronically signed by Sean Ruth DO>Date Sean Ruth DO 12/19/20 1054<Electronically signed by Derrick CEJACosigner Signature:Date (if applicable)Derrick Ramirez have re-examined the patient. There are no clinical changes since date of exam
[2021-01-14] MEDS: Cefazolin 2 GM in 0.9% Normal Saline 100 ML IV (10:04)
[2021-01-14] MEDS: Epinephrine (1 mg/ml) 1 MG/ML VIAL (10:40)
--- NOTE | 2021-01-14 11:08 | PCM.OPRPT ---
Report of Operation Description of Surgical Findings:: Preoperative diagnosis: Right shoulder labral tear, impingement shoulder stiffness Postoperative diagnosis: Right shoulder arthroscopic biceps tenotomy partial synovectomy subacromial decompression Procedure: Right shoulder arthroscopic biceps tenotomy labral debridement synovectomy manipulation under anesthesia subacromial decompression Anesthesia: General with interscalane block; EBL: 10 cc Complications: none Indication for procedure: 50-year-old female who has had ongoing right shoulder pain over the past year without injury did feel injection therapy subacromial glenohumeral as well as physical therapy continue to have pain and progressive stiffness develop patient did have MRI evidence of SLAP tear and impingement patient did wish to proceed with an arthroscopic subacromial decompression manipulation under anesthesia possible capsular release labral debridement and surgery as indicated. risks benefits and alternatives of the procedure were reviewed including risk of bleeding infection nerve artery tissue damage need for further surgery continued pain postoperative stiffness and need for postoperative physical therapy and continued pain, and postoperative cosmesis deformity of biceps. Procedure : Patient was met in the preoperative holding area the operative extremity was identified by both the patient and the physician and was marked. Patient was met by anesthesia and brought back to the operating room on a wheeled cart. She was transferred to the operating table in the supine position. Anesthesia was started. Patient was then positioned in the beachchair configuration. Bony prominences were well-padded. The patient was prepped and draped in the usual sterile fashion. A timeout was called to ensure the proper patient procedure and extremity were being contemplated. A gentle manipulation under see anesthesia was performed and palpable audible scar release was felt with forward flexion full range of motion achieved internal/external rotation and extension and abduction. anatomic landmarks were palpated and marked with a marking pen. A 0.25% Marcaine with epinephrine was injected into the planned portal sites. An 11 blade scalpel was used to make a stab incision in the posterior lateral portal. Arthroscope was inserted into the glenohumeral space with ease. Inflow and outflow tubes were attached and arthroscopic visualization began. An anterior portal was established with an 18-gauge spinal needle. Immediately there is noted to be type II SLAP tear and anterior labral tearing the biceps did have lipstick lesion with use and ArthroCare and a shaver labral debridement biceps tenotomy was performed there was significant synovitis and capsular thickening in the rotator interval and this was excised with a shaver after this was completed the axillary pouch was investigated free of loose bodies rotator cuff was intact partial capsular release was performed around the anterior shoulder anterior and posterior to the subscapularis was debrided. the arthroscope was then repositioned into the subacromial space there was significant bursal thickening of acromial decompression of bursal tissue as well as acromioplasty were performed there was a small anterior acromial spurring which was removed bursal side of the cuff was evaluated and there was no tear seen or palpated with probe probe the wound was thoroughly irrigated through the scope followed by a subacromial injection with 40 mg Depo-Medrol 4 mg of morphine and 8 cc of 0.5% Marcaine plain. Suture portals were closed with 3-0 nylon arthroscopic stitches followed by Xeroform 4 x 4 ABD and a Ioban dressing. A regular sling was placed. Anesthesia was reversed and patient tolerated the procedure well was and was transferred to the PACU all counts were correct patient will follow-up in the office in 2 weeks patient may begin active range of motion immediately shrink pit supervisor: Derrick Ramirez
--- NOTE | 2021-01-14 11:16 | EX.PCM.DISCH ---
Discharge Instructions Diet Discharge Diet: 2000 Calorie Control Diet (High sugar diet increases risk of infection) Activity Additional Activity Instructions:: Leave the dressing on and intact for 48 hours. Then may remove and shower with warm water and antibacterial soap. But do not submerge in tub for 3 weeks. ice shoulder 15 min on and 15 mins off next 72 hrs. DC sling as soon as possible and start immediate shoulder range of motion. Must DC completely by 1 week. Do not lift push or pull greater then 5 lbs with operative extremity. Encourage finger and wrist range of motion. If any concerns call Dr. Ruth's office. Start physical therapy immediately. Follow Up Care Please Follow Up With: Sean Ruth DO When: 2 weeks Test Results: Test results from this visit will be discussed in further detail at your follow-up appointment, if applicable. Discharge Plan Admission Primary Reason for Your Visit: right shoulder arthroscopy Attending Provider: Sean Ruth Primary Care Provider: Tyrell Vo Consulting Providers: Rio Pan Discharge Orders/Prescriptions Prescriptions: New oxycodone 5 mg capsule 5 - 10 mg PO Q4H PRN (Reason: pain) 7 Days Qty: 50 RF: 0 Continued multivitamin 1 TABLET tablet 1 tab PO DAILY RF: 0 calcium carbonate 600 MG tablet 600 mg PO DAILY@0800 RF: 0 folic acid 1 MG tablet 1 mg PO DAILY RF: 0 omega 2-pit-yyh-fish oil 500 MG capsule,delayed release(DR/EC) 500 mg PO DAILY RF: 0 metformin 500 MG tablet 1,000 mg PO BID RF: 0 glipizide 10 MG tablet extended release 24hr 5 mg PO BID RF: 0 lisinopril 10 MG tablet 10 mg PO DAILY RF: 0 metoprolol tartrate 50 MG tablet 50 mg PO BID RF: 0 vitamin B complex 1 EACH capsule 1 ea PO DAILY RF: 0 dulaglutide 0.75 MG/0.5 ML pen injector 0.5 mg SQ TH RF: 0 L.acidoph, paracasei,B. lactis 1 EACH capsule 1 ea PO DAILY RF: 0 naproxen sodium 220 MG capsule 2 tab PO BID PRN (Reason: pain) Qty: 30 RF: 0 aspirin 81 MG tablet,delayed release (DR/EC) 81 mg PO DAILY RF: 0 pioglitazone 30 MG tablet 30 mg PO QHS RF: 0 Discontinued tramadol 50 mg tablet 50 mg PO BID PRN (Reason: pain) Qty: 30 RF: 0 Referrals / Follow Up: Tyrell Vo MD [Primary Care Provider] - Disposition Discharge Orders: Discharge Patient (Routine); Ordered 01/14/21 Ordered By: Dr. Sean Ruth
[2021-01-14] MEDS: Bupivacaine Mpf 0.5% 30 ML VIAL (11:20)
[2021-01-14] MEDS: MethylPREDNISolone Acetate 40 MG/ML Vial IM (11:20)
[2021-01-14] MEDS: Bupivacaine 0.25%-Epi/Pf 1:200,000 OPERA.SITE (11:26)
[2021-01-14 11:38] LABS: Bedside Glucose 108 mg/dL (70-110)
[2021-01-14 12:06] LABS: Bedside Glucose 111 mg/dL (70-110)
[2021-01-14] MEDS: Cefazolin 1 GM/50 ML BAG IV (12:33)
[2021-01-14] MEDS: oxyCODONE 5 MG Tablet PO (14:13)
== END 2021-01-14 14:37 | disposition home or self-care (01) ==
LOC: SDC 07:20 → AC 07:21
PROVIDERS: Anesthesiology; PCP Family Medicine; Referring Provider Orthopaedic Surgery; Visit Provider Orthopaedic Surgery
PROC: (CPT 29827; principal; 2021-01-14 09:55)
DX: S43.431A Superior glenoid labrum lesion of right shoulder, initial encounter (principal); S43.491A Other sprain of right shoulder joint, initial encounter; M75.41 Impingement syndrome of right shoulder; M25.611 Stiffness of right shoulder, not elsewhere classified; E11.9 Type 2 diabetes mellitus without complications; K21.9 Gastro-esophageal reflux disease without esophagitis; I10 Essential (primary) hypertension; Z79.84 Long term (current) use of oral hypoglycemic drugs; Z79.899 Other long term (current) drug therapy; X58.XXXA Exposure to other specified factors, initial encounter; Y93.89 Activity, other specified; Y92.89 Other specified places as the place of occurrence of the external cause; Y99.8 Other external cause status
CPT/HCPCS: 01630; 23700; 29820; 29822; 29828; 36415; 80048; 82962; 83036; J7120; J2405

== ENCOUNTER 2021-02-10 12:30 | Outpatient (RCR) | payer OTHER, SELFPAY ==
[2020-12-18 13:51] VITALS: BMI 32.3
[2021-01-14 07:53] VITALS: BMI 34.7
--- NOTE | 2021-01-15 14:59 | HP.PTEVAL_ITS ---
Patient's Visit Information MELLO BRONSON is a 50 year old F referred to Physical Therapy by Dr. Sean Ruth DO with a diagnosis of R shoulder LORENZA and arthroscopy 01/15/21. Date of Evaluation: 01/15/21 Physical Therapist: Abhinav Khalil, PT, ATC - Visit Plan Frequency: 2-3x /Week Duration: 4-6 Weeks Plan: PROM and mobs to R shoulder, R shoulder strengthening, scap stab ex's, UBE, and HEP - Subjective DOS: 01/15/21. Pt reports she had LORENZA with arthroscopy performed yesterday. Pt reports prior to this surgery, pt reports she had R shoulder pain for several months. Pt reports she had no mechanism of injury to her R shoulder. Pt notes she did have a hysterectomy performed in April of 2020 and notes it was one month after that her R shoulder started to hurt a lot. Eventually, pt had MRI which revealed a torn labrum. Pt reports she then had aquatic therapy which was unsuccessful in reducing her pain. Pt notes she is really sore today and has been since her Nerve block has worn off. Pt notes a little tingling and numbness in R UE. Pt reports since her injection wore off, she knows she will have sleep difficulty. Pt reports she is limited with all IADL's and activiites at home. 6/10 pain at rest, 9/10 pain at worst. - Pain R shoulder Pain Intensity (Out of 10): 6 Pain Intensity Range: 9 - Objective Neuro: B UE sensation is WNL to lgiht touch. R bicepital reflex= 1/3, L= 2/3. Observation: Incisions appear to be healing well. Still covered by bandages. AROM: L shoulder flex= 165, abd= 180, ER= 65, IR WNL. Pt is unable to actively move R shoulder at this time. MMT: L shoulder is 5/5 this date. R shoulder is 1/5 and painful - Goals Goal 1:: Decrease R shoulder pain x 50% to aid with sleep Goal Time Frame: 4-6 Weeks Goal 2:: Increase R shoulder flex and abd ROM x 70 degrees to aid with overhead activity Goal Time Frame: 4-6 Weeks Goal 3:: Increase R shoulder strength x 2 grades to aid with IADL's Goal Time Frame: 4-6 Weeks Goal 4:: I with HEP Goal Time Frame: 4-6 Weeks - Rehabilitation Potential Physical Therapy Diagnosis: R shoulder pain, weakness, and limited ROM secondary to R shoulder Arthroscopy. Rehabilitation Potential: Good - Anticipated Interventions Patient/Client Instruction: Educate patient on: Condition, Plan of Care For the Purpose of:: To improve self management Therapeutic Exercise to Include: Strength training, Flexibilty training, Passive ROM, Active ROM, Scapular Strength/Stabilization For the Purpose of:: To decrease pain, To increase ROM, To improve muscle performance and motor function Cryotherapy (ice pack, ice massage): Yes For the Purpose of:: To decrease pain Thank you for the opportunity to evaluate your patient. For Medicare and Medicare HMO plans, please review the plan of care and approve it. It will need to be FAXED BACK to us at [phone] for Medicare purposes. For Medicare only, by signing this I certify the plan of care. Please let me know if there are questions or concerns regarding this plan of care. Physician Signature: ____Date:
--- NOTE | 2021-01-23 12:53 | HP.PTREVAL ---
Dr. Sean Ruth, DO, It has been my pleasure to treat MELLO BRONSON over the last 6 visits for R shoulder LORENZA and arthroscopy 01/15/21. Please see the progress note below for an update on the physical therapy plan of care! Subjective: Pt. states that her shoulder feels good today, but her bicep is pretty tender and sore. Objective/Function: The pt. did well with therapy today and was able to progress all AAROM exercises. She experiences bicep tightness with each exercise, but this feels better after trigger point release. The pt. states that she has not been experiencing much shoulder pain until she gets to those mid ranges of flexion and abduction. PROM in supine flexion 126deg, PROM in supine abduction 110deg, AROM in standing flexion 120deg, AROM in standing abduction 100deg. We continue to urge her to work into further ROM to increase tissue creep. Pt. consents. Plan Plan: PROM and mobs to R shoulder, R shoulder strengthening, scap stab ex's, UBE, and HEP Goals Goal 1:: Decrease R shoulder pain x 50% to aid with sleep Goal Time Frame: 4-6 Weeks Goal 2:: Increase R shoulder flex and abd ROM x 70 degrees to aid with overhead activity Goal Time Frame: 4-6 Weeks Goal 3:: Increase R shoulder strength x 2 grades to aid with IADL's Goal Time Frame: 4-6 Weeks Goal 4:: I with HEP Goal Time Frame: 4-6 Weeks Anticipated Interventions Patient/Client Instruction: Educate patient on: Condition, Plan of Care For the Purpose of:: To improve self management Therapeutic Exercise to Include: Strength training, Flexibilty training, Passive ROM, Active ROM, Scapular Strength/Stabilization For the Purpose of:: To decrease pain, To increase ROM, To improve muscle performance and motor function Cryotherapy (ice pack, ice massage): Yes For the Purpose of:: To decrease pain Please do not hesitate to contact me at [phone] by phone or if you have questions or concerns regarding this new plan of care! Sincerely, Keny Gilbert DPT
--- NOTE | 2021-02-10 12:54 | HP.PTDCSUM ---
It has been my pleasure to treat MELLO BRONSON referred by Dr. Sean Ruth DO, with the diagnosis of R shoulder LORENZA and arthroscopy 01/14/21 for a total of 12 visit(s). Discharge Date: Please see the following information for a summary of their discharge status. Subjective: I feel great today R shoulder Pain Intensity (Out of 10): 0 % Improvement: 90 Objective/Function: 0/10 pain this date. R shoulder flexion and abduction ROM is 175 degrees. R shoulder strength is grossly 4/5 throughout. Rx goals achieved Goal 1:: Decrease R shoulder pain x 50% to aid with sleep Goal Progress: Goal Met Goal 2:: Increase R shoulder flex and abd ROM x 70 degrees to aid with overhead activity Goal Progress: Goal Met Goal 3:: Increase R shoulder strength x 2 grades to aid with IADL's Goal Progress: Goal Met Goal 4:: I with HEP Goal Progress: Goal Met Plan: Discharge If there are questions or concerns regarding this patient's physical therapy, please feel free to call me at [phone]. Thank you for the referral of this patient. Sincerely, Abhinav Khalil, PT, ATC
== END 2021-02-10 19:00 | disposition home or self-care (01) ==
LOC: PT 12:30
PROVIDERS: PCP Family Medicine; Referring Provider Orthopaedic Surgery; Visit Provider Orthopaedic Surgery
DX: Z98.890 Other specified postprocedural states (principal)
CPT/HCPCS: 97110; 97140; 97161; 97164

== ENCOUNTER → 2021-12-12 | Outpatient (CLI) | payer OTHER, SELFPAY ==
[2021-12-12 09:31] LABS: Absolute Neutrophil Count 4.8 X10^3/uL (2.0-7.7); Basophil# 0.04 X10^3/uL; Basophil% 0.5 % (0-1); Eosinophil# 0.11 X10^3/uL; Eosinophils% 1.4 % (0-5); Hematocrit 36.2 % (37-47); Hemoglobin 11.2 g/dL (12.0-15.0); Lymphocyte % 28.6 % (19-41); Mean Corp Hgb Conc 30.9 g/dL (32-36); Mean Corpuscular Hgb 28.2 pg (27.0-32.0); Mean Corpuscular Volume 91.2 fL (81-99); Mean Platelet Vol. 10.6 fl (6.2-12.0); Monocyte# 0.48 X10^3/uL; Monocyte% 6.2 % (0-10); NRBC Flagged by Analyzer 0 % (0-5); Neutrophil # 4.84 X10^3/uL (2.7-7.7); Neutrophil % 62.9 % (47-70); Platelet Count 348 K/mm3 (150-450); RBC Distribution Width CV 14.1 % (11.6-14.6); RBC Distribution Width SD 47.2 fl (35.1-43.9); Red Blood Count 3.97 M/mm3 (4.2-5.4); White Blood Count 7.7 K/mm3 (4.4-11.0)
[2021-12-12 10:01] LABS: AST(SGOT) 18 U/L (15-37); Alanine Aminotransfer ALT/SGPT 25 U/L (13-56); Albumin, Serum 3.7 g/dL (3.2-5.0); Alkaline Phosphatase 65 U/L (45-117); Anion Gap 7 (5-15); BUN 13 mg/dL (7-18); Calcium,Total 9.2 mg/dL (8.5-10.1); Chloride 102 mmol/L (98-107); Cholesterol 208 mg/dL (200); Creatinine, Serum 0.76 mg/dL (0.55-1.02); EST Glomerular Filtration Rate 85 mL/min (>60); Est Glom Filt Rate - Afr Amer 103 mL/min (>60); Globulin 3.6 g/dL (2.2-4.2); Glucose 107 mg/dL (74-106); High Density Lipoprotein 56 mg/dL; Potassium 4.6 mmol/L (3.5-5.1); Protein, Total 7.3 g/dL (6.4-8.2); Sodium Level 136 mmol/L (136-145); Triglycerides 211 mg/dL; Very Low Density Lipoprotein 42 mg/dL (5-40)
[2021-12-12 10:09] LABS: Hemoglobin A1c 6.6 % (3.8-5.6)
== END | disposition home or self-care (01) ==
LOC: LAB 08:03
PROVIDERS: PCP Family Medicine; Referring Provider Family Medicine; Visit Provider Family Medicine
DX: E11.65 Type 2 diabetes mellitus with hyperglycemia (principal); I10 Essential (primary) hypertension
CPT/HCPCS: 36415; 80053; 80061; 83036; 85025

== ENCOUNTER 2024-04-14 05:41 | Emergency (ER) | payer OTHER, SELFPAY ==
[2024-04-14 05:42] VITALS: BP 143/97; PULSE 104; RESP 18; TEMP 36.5; O2SAT 100; BMI 28.5
--- NOTE | 2024-04-14 05:57 | CT_ITS ---
EXAM: CT LUMBAR SPINE WITHOUT INTRAVENOUS CONTRAST CLINICAL INDICATION: Lumbar radiculopathy TECHNIQUE: Helically acquired images were obtained of the lumbar spine without intravenous contrast. 2D reformats were reviewed. This CT exam was performed using one or more of the following dose reduction techniques: automated exposure control, adjustment of the mA and/or kV according to patient size, and/or use of iterative reconstruction technique. RADIATION DOSE: CTDIvol = 15.03 mGy, DLP = 538.26 mGy-cm COMPARISON: No relevant prior studies available. FINDINGS: VERTEBRAE: Unremarkable. No fracture. No traumatic subluxation. No discrete lytic or blastic abnormality. Normal alignment. VASCULATURE: Visualized abdominal aorta is not dilated. LYMPH NODES: Unremarkable. No retroperitoneal adenopathy. DISCS/SPINAL CANAL/NEURAL FORAMINA: L1-L2: Unremarkable. Disc heights are preserved. No critical stenosis. L2-L3: Unremarkable. Disc heights are preserved. No critical stenosis. L3-L4: Unremarkable. Disc heights are preserved. No critical stenosis. L4-L5: Unremarkable. Disc heights are preserved. No critical stenosis. L5-S1: Unremarkable. Disc heights are preserved. No critical stenosis. CT/Spine Lumbar without Contrast IMPRESSION: No evidence of acute lumbar spinal fracture or spondylolisthesis. Electronically Signed: Brandon Keyes MD at 6:40 EDT ,
--- NOTE | 2024-04-14 06:03 | EX.ED.DYSGE1 ---
HPI History of Present Illness Chief Complaint: Back Informant: patient and spouse/S.O. Narrative Narrative: Patient is a 54-year-old female with past medical history of hypertension and diabetes. She states that over the last 1 to 2 days she noticed a twinge of pain in her left side low back. She states that there was no trauma or excessive activity and she did not think much of this as it seemed to improve with time or sdar-erc-doamsfy medication. She states she went to bed as she normally would and then awoke around 4 in the morning secondary to pain and her left low back. She states that there was no improvement or worsening of the pain with any type of position change and that she began to feel like it would radiate down her left leg. She denies any hematuria or dysuria or concern for . She denies any loss of bowel or bladder control or IV drug use. However secondary to the worsening pain that is not responding to home medications she presents for evaluation [facility] Medical History Alcohol use Diabetes Factor 5 Leiden mutation, heterozygous Blood disorder Injury of back Dietary restriction Gastric reflux Non-smoker Hypertension Home Medications ?Medication ?Instructions ?Recorded ?Last Taken ?Type calcium carbonate 600 mg PO BID 07/02/13 Unknown History folic acid 1 mg tablet 1 mg PO DAILY 07/02/13 Unknown History multivitamin 1 tab PO DAILY 07/02/13 Unknown History omega 3-dha 60 mg-epa 90 mg-fish 500 mg PO DAILY 07/02/13 Unknown History oil 500 mg capsule, delayed release metformin 500 mg tablet,extended 1,000 mg PO BID diabetes 07/25/15 Unknown History release 24 hr L.acidoph, paracasei,B. lactis 10 1 ea PO DAILY supplement 03/14/20 Unknown History billion cell capsule glipizide 10 mg tablet, extended 5 mg PO BID diabetes 03/14/20 Unknown History release 24 hr lisinopril 10 mg tablet 10 mg PO DAILY bp 03/14/20 04/25/20 History metoprolol tartrate 50 mg tablet 50 mg PO BID bp 03/14/20 04/25/20 History vitamin B complex 1 ea PO DAILY 03/14/20 Unknown History aspirin 81 mg tablet,delayed 81 mg PO DAILY clotting disorder 04/16/20 01/07/21 History release gabapentin 300 mg capsule 300 mg PO TID 30 days #90 caps 04/14/24 Unknown Rx methocarbamol 500 mg tablet 1,000 mg (2 x 500 mg) PO 4X/DAY 04/14/24 Unknown Rx PRN Muscle pain/spasm #56 tabs ondansetron 4 mg disintegrating 4 mg PO TID PRN nausea and 04/14/24 Unknown Rx tablet vomiting #21 tabs oxycodone-acetaminophen 5 mg-325 1 tab PO Q6H PRN pain 5 days #20 04/14/24 Unknown Rx mg tablet (Percocet) tabs prednisone 20 mg tablet 40 mg (2 x 20 mg) PO DAILY 5 days 04/14/24 Unknown Rx #10 tabs semaglutide 2 mg/dose (8 mg/3 mL) 2 mg subcut QWEEK 04/14/24 Unknown History subcutaneous pen injector (Ozempic) Allergy/AdvReac Type Severity Reaction Status Date / Time morphine Allergy Other Verified 04/14/24 05:42 Surgical History History of laparoscopic-assisted vaginal hysterectomy (~04/25/20) Hx of arthroscopy of right knee Hx of tonsillectomy Hx of bilateral breast reduction surgery Hx of dilation and curettage Hx of section Social History (Updated 11/07/20 @ 12:[address] Sarah Rodriguez, ) Smoking Status: Never smoker ROS ROS ED Constitutional Constitutional ED: Denies chills or fever(s) ENT ENT ED: Denies sore throat Cardiovascular Cardiovascular: Denies chest pain Respiratory/Chest Respiratory/Chest: Denies cough or dyspnea Gastrointestinal Gastrointestinal: Denies abdominal pain, diarrhea, nausea or vomiting Genitourinary Genitourinary ED: Denies dysuria, hematuria or urinary frequency Musculoskeletal Musculoskeletal: Reports back pain Integumentary Denies Abrasions or rash Neurologic Neurologic: Denies headache(s), paresthesias or weakness Hematologic/Lymphatic Hematologic/Lymphatic: Denies easy bleeding or easy bruising EXAM Physical Exam Const Vital Signs: 04/14/24 05:42 Temperature 97.7 F L Temperature Source Oral Pulse Rate 104 H Respiratory Rate 18 Blood Pressure 143/97 H Blood Pressure Mean 112 Pulse Ox 100 Oxygen Delivery Method Room Air Positive well nourished, well developed and obese General Appearance ED: well developed; Negative for pallor Nutritional Appearance: obese HEENT HEENT Narrative: Normocephalic atraumatic Eyes PERRL and EOMs intact bilaterally General Eye ED: Negative for scleral icterus Neck supple Resp normal respiratory effort and clear to auscultation bilaterally Cardio regular rate and regular rhythm Rate: other Other Details: Heart is regular rate and rhythm without murmurs rubs or gallops Radial and carotid pulses are equal and symmetric GI normal to inspection, nondistended, normoactive bowel sounds, non-tender, non-distended and no masses GI Narrative: Soft nontender and nondistended with normal active bowel sounds. No voluntary guarding or rigidity or pulsatile mass. No organomegaly Auscultation: normoactive bowel sounds Palpation: soft Back/Spine no CVA tenderness Back/Spine Narrative: No bony deformity or step-off of the thoracic or lumbar spine no midline tenderness to palpation. No pain with palpation over the sacroiliac joint region No pain on palpation of the piriformis muscle No saddle anesthesia. Negative straight leg raise on right but it is positive on left at approximately 45 degrees. No clonus or Babinski bilaterally. Patellar reflexes are plus 1 out of 4 bilaterally. No overlying soft tissue changes to suggest trauma or infection Extremity normal to inspection Extremity Narrative: No asymmetric edema no pitting edema negative Homans' sign bilaterally No foot drop noted Neuro oriented x3, CN's II-XII intact bilaterally and no sensory deficits noted Sensorium / Orientation: alert Motor Exam: strength 5/5 throughout Psych mental status grossly normal Skin no rashes or lesions noted and no wounds General Skin Exam: Negative for jaundice or pallor MDM MDM MDM Narrative Medical decision making narrative: Patient arrived to the ER hypertensive but otherwise with stable vitals. She reported pain in her left back that radiated down the left leg. She denied loss of bowel or bladder control or IV drug use and therefore my concern for cauda equina or epidural abscess is low. Patient also did not have flank pain but there is concern this could be atypical kidney stone versus UTI versus pyelonephritis so urine sample was ordered. Urine shows no sign of blood or infection going against UTI/pyelonephritis or kidney stone. As the patient had pain in the dermatomal pattern down the posterior aspect of the left leg with positive right leg raise I do feel this is most likely nerve impingement. A noncontrast CT was obtained to check for potential causes which were negative. However MRI is the better study. But at this time she has no signs of neuro claudication and she does not have risk factors for cauda equina or epidural abscess so I do not believe there is need for an emergent MRI. At this time the patient can be discharged home and follow-up with neurosurgery on outpatient basis to discuss further causes of her back pain and/or obtain the MRI. However at this time with no signs of infection and no signs of neuro claudication or neurovascular compromise she is otherwise safe for discharge with symptomatic care History & Record Review Discussion w/independent historian: Patient and Significant other Lab Data Labs: Laboratory Results - last 24 hr 04/14/24 06:23 Urine Color Yellow Urine Clarity Sl. Cloudy Urine pH 6.0 Ur Specific [place] 1.025 Urine Protein 30 H Urine Glucose (UA) Normal Urine Ketones 5 H Urine Occult Blood Negative Urine Nitrite Negative Urine Bilirubin 1 H Urine Urobilinogen 1 H Ur Leukocyte Esterase 25 H Urine RBC 0 SEEN Urine WBC 0 SEEN Ur Squamous Epith Cells 0-5 SEEN Urine Bacteria 0 SEEN Urine Mucus 0 SEEN Radiography Diagnostic Testing: Clinical Impression(s) from Imaging Studies Lumbar Spine CT 04/14/24 05:57 IMPRESSION: No evidence of acute lumbar spinal fracture or spondylolisthesis. Electronically Signed: Brandon Keyes MD at 6:40 EDT , Discharge Plan Triage Chief Complaint: Back ED Provider: Mynor Elias Dx/Rx/DC Orders Clinical Impression: Acute left lumbar radiculopathy, Hypertension, Non-insulin dependent diabetes mellitus Instructions: Understanding Lumbar Radiculopathy Prescriptions: New oxycodone-acetaminophen [Percocet] 5-325 mg tablet 1 tab PO Q6H PRN (Reason: pain) 5 Days Qty: 20 0RF gabapentin 300 mg capsule 300 mg PO TID 30 Days Qty: 90 0RF methocarbamol 500 mg tablet 1,000 mg PO 4X/DAY PRN (Reason: Muscle pain/spasm) Qty: 56 1RF prednisone 20 mg tablet 40 mg PO DAILY 5 Days Qty: 10 0RF ondansetron 4 mg tablet,disintegrating 4 mg PO TID PRN (Reason: nausea and vomiting) Qty: 21 0RF No Action multivitamin 1 TABLET tablet 1 tab PO DAILY calcium carbonate 600 MG tablet 600 mg PO BID folic acid 1 MG tablet 1 mg PO DAILY omega 4-ugu-jxg-fish oil 500 MG capsule,delayed release(DR/EC) 500 mg PO DAILY metformin 500 MG tablet 1,000 mg PO BID glipizide 10 MG tablet extended release 24hr 5 mg PO BID lisinopril 10 MG tablet 10 mg PO DAILY metoprolol tartrate 50 MG tablet 50 mg PO BID vitamin B complex 1 EACH capsule 1 ea PO DAILY L.acidoph, paracasei,B. lactis 1 EACH capsule 1 ea PO DAILY aspirin 81 MG tablet,delayed release (DR/EC) 81 mg PO DAILY Patient Comments: ask about stopping for surgery Ozempic 2 mg/dose (8 mg/3 mL) pen injector 2 mg subcut QWEEK Primary Care Provider: Tyrell Vo Referrals: Gee Palma MD [Med Staff - Active Staff] - Tyrell Vo MD [Primary Care Provider] - Activity Restrictions/Additional Instructions: Please follow-up with neurosurgery to discuss need for MRI to further assess the cause of your back pain. Use the prescribed medications as directed to help control your pain and return to the ER should you have any further concerns or worsening of symptoms Print Language: Surinamese Disposition Disposition: Home, Self Care
[2024-04-14] MEDS: Orphenadrine 60 MG/2 ML Ampul IV (06:14)
[2024-04-14] MEDS: Ketorolac 30 MG/ML Syringe IV (06:14)
[2024-04-14 06:26] LABS: Bacteria 0 SEEN /hpf (None Seen); Mucous, Urine 0 SEEN /hpf (<or=2+); Red Blood Cells-Urine 0 SEEN /hpf (0-5); White Blood Cells 0 SEEN /hpf (0-5)
[2024-04-14 06:28] LABS: Color, Urine Yellow (Yellow); Glucose, Dipstick Normal (Normal); Ketone-Dipstick 5 mg/dl (Negative); Leukocyte Esterase-Dipstick 25 /ul (Negative); Nitrite-Dipstick Negative (Negative); Occult Blood-Urine Negative /ul (Negative); Protein-Dipstick 30 mg/dl (Negative); Specific Gravity, Urine 1.025 (1.002-1.030); Urine Clarity Sl. Cloudy (Clear); Urine Urobilinogen 1 mg/dl (Normal)
[2024-04-14] MEDS: Gabapentin 300 MG Capsule PO (06:30)
[2024-04-14 07:02] LABS: Squamous Epithelial Cells - UA 0-5 SEEN /hpf (5-10); Urine Bilirubin Dipstick 1 mg/dL (Negative)
[2024-04-14] MEDS: Ondansetron 4 MG/2 ML Vial IV (07:03)
[2024-04-14] MEDS: HYDROmorphone 0.5 MG/0.5 ML SYRINGE IV ×2 (07:03→07:49)
[2024-04-14] MEDS: oxyCODONE 5 MG Tablet 10 MG PO (07:48)
[2024-04-14] MEDS: dexAMETHasone 10 MG/ML Vial IV (07:48)
[2024-04-14 07:53] VITALS: BP 142/84; PULSE 88; RESP 19; TEMP 36.7; O2SAT 99
== END 2024-04-14 07:56 | disposition home or self-care (01) ==
PROVIDERS: Emergency Provider Emergency Medicine; PCP Family Medicine; Visit Provider Emergency Medicine
DX: M54.16 Radiculopathy, lumbar region (principal); E11.9 Type 2 diabetes mellitus without complications; I10 Essential (primary) hypertension; Z79.82 Long term (current) use of aspirin; Z79.84 Long term (current) use of oral hypoglycemic drugs; Z79.85 Long-term (current) use of injectable non-insulin antidiabetic drugs; Z79.899 Other long term (current) drug therapy
CPT/HCPCS: 72131; 81001; 96374; 96375; 96376; 99282; A4216; J2405

== ENCOUNTER 2024-06-09 13:30 | Outpatient (RCR) | payer OTHER, SELFPAY ==
--- NOTE | 2024-05-01 08:12 | HP.PTEVAL ---
Patient's Visit Information Visit Information Visit Information: MELLO BRONSON is a 54 year old F referred to Physical Therapy by Dr. Gee Palma MD with a diagnosis of Lumbar radiculopathy. Date of Evaluation: 05/01/24 Physical Therapist: Rio Carrillo, DPT, OCS, CSCS Visit Plan Frequency: 2x /Week Duration: 4-6 Weeks Plan: 2x/week for 4-6 weeks for... 1. ext bias lumbar ROM exercises, HS stretching 2. core and postural strength mat to gym to HEP 3. TENS and STM to L LB and mobs ext PA to lumbar as needed IE: postural instruct with towel roll PPU 10x 8x/day, pelvic tilt 15x 3x/day nerve glide HS 5x5 2x/day cat camel 10x 3x/day Ho given. Subjective Subjective: 2 weeks ago ended up in ER at 5am after waking up with excruciating back pain L LB and down leg. No clue the day prior. H/o of on off back pain but bot like this. No problems lately. took to ER since she could not get comfy. ER did catscan and blood work. Gave pain meds and steroids which did not seem to help. Not as intense when she left ER and f/u with Dr. Palma. Had x rays and may have a fragment break off disc at L5. ordered PT. Pain has been up and down this past week. last week started OK but later in the week was worse and hard to sleep, 2 hrs at a time. Mostly L LB and hip now. Dr. Palma offered pain management and MRI. Trying to get approval from insurance. This weekend was not great, 04/25 on Wednesday, yesterday not as bad as she took meds regularly. Works from home mostly but in office 2-3 days per week and usually does more standing at work and worse. 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 Basic ADLs all getting done, just needs help with laundry. Hobbies: [employer] but has not been able to do them. No numbness or tingling l leg gave out one time last week. Pain L LB: Pain Intensity (Out of 10): 5 Pain Intensity Range: 0 and 9 Objective Objective: Walk into PT I without antalgia. Transfers I chair and bed without much pain increase. Steps recirpocal with no rail but not trusting of L leg and obviously weaker L eccentrically. + SLR slightly on L, tension with slump and much tighter L vs R. LB AROM ext mod limited and painful centrally, L SB slightly painful but symmetrical with R. Flexion is painful L buttock and min limited. Posture is forward head and flat lumbar lordosis. is a passive sitter. hip and knee aROM is symmetrical, tightnes sobvoious in tender L HS with testing. reflexes 1/3 patella and achilles B. sensation LE WNL to gross light touch B LE. strength DF 4 B, knee ext 4- L, 4 R,knee flexion 4- B, hip flexion 4- L and 4 r, abd 4 B. core strength 3+ abs and 3 extension. repeated ext increases ROM quickly Balance/Special Test Scores Oswestry Low Back Score: 23 Goals Goal 1:: sleep without waking due to pain 7 days Goal Time Frame: 4-6 Weeks Goal 2:: pain 2/10 at worst and 80% improved Goal Time Frame: 4-6 Weeks Goal 3:: I approrpiate HEP to limit future problems Goal Time Frame: 4-6 Weeks Goal 4:: oswestry 5 or better Goal Time Frame: 4-6 Weeks Rehabilitation Potential Physical Therapy Diagnosis: limited ROM and weakness and pain limiting function and comfort. Rehabilitation Potential: Fair Anticipated Interventions Patient/Client Instruction: Educate patient on: Condition and Plan of Care For the Purpose of:: To decrease pain and To increase tolerance to activity/condition/position Therapeutic Exercise to Include: Strength training, Postural training, Flexibilty training, Passive ROM, Active ROM, Dynamic Lumbar Stabilization and Moe Exercises For the Purpose of:: To decrease pain, To increase ROM, To improve nutrient delivery to tissue, To improve performance and independence with ADL's and To improve gait and locomotor functions Manual Therapy Techniques to Include: Mobilization, Passive ROM and Soft tissue mobilization For the Purpose of:: To decrease pain and To increase ROM TENS: Yes Cryotherapy (ice pack, ice massage): Yes For the Purpose of:: To decrease pain and To improve nutrient delivery to tissue Text: Thank you for the opportunity to evaluate your patient. For Medicare and Medicare HMO plans, please review the plan of care and approve it. It will need to be FAXED BACK to us at [phone] for Medicare purposes. For Medicare only, by signing this I certify the plan of care. Please let me know if there are questions or concerns regarding this plan of care. Physician Signature: Date:
--- NOTE | 2024-06-09 14:24 | HP.PTDCSUM_ITS ---
Discharge Summary D/C summary: It has been my pleasure to treat MELLO BRONSON referred by Dr. Gee Palma MD, with the diagnosis of Lumbar radiculopathy for a total of 9 visit(s). Discharge Date: 06/09/24 Please see the following information for a summary of their discharge status. Subjective Subjective: Injection last week helped tremendously, got rid of hip pain but feels LB inermittently but not constantly. Activities are back to normal. Sleeping OK now.Dr. Amaya gave injection and it helped. Nothing scheudled with Louie. Pain L LB: Pain Intensity (Out of 10): 0 Overall Improvement % Improvement: 90 Objective Objective/Function: Full Lumbar ROM without hesitation or pain today :feels great. Walking normal, stair reciprocal without rail. Moves comfortably and freely. Goals Goal 1:: sleep without waking due to pain 7 days Goal Progress: Goal Met Goal 2:: pain 2/10 at worst and 80% improved Goal Progress: Goal Met Goal 3:: I approrpiate HEP to limit future problems Goal Progress: Goal Met Goal 4:: oswestry 5 or better Goal Progress: Progressing Plan Plan: d/c to HEP D/C Information Discharge Comments: Will contact Dr. Palma if pain returns but injection has w orked well. d/c sentence: If there are questions or concerns regarding this patient's physical therapy, please feel free to call me at [phone]. Thank you for the referral of this patient. Sincerely, Rio Carrillo, DPT, OCS, CSCS Balance/Gait/Functional tests Balance/Special Test Scores Oswestry Low Back Score: 8 Improvement % Improvement: 90
== END 2024-06-09 19:00 | disposition home or self-care (01) ==
LOC: PT 13:30
PROVIDERS: PCP Family Medicine; Referring Provider Orthopaedic Surgery Orthopaedic Surgery of the Spine; Visit Provider Orthopaedic Surgery Orthopaedic Surgery of the Spine
DX: M54.16 Radiculopathy, lumbar region (principal)
CPT/HCPCS: 97014; 97110; 97161; 97530; G0283